=== PATIENT | male | born 1970 ===

== ENCOUNTER → 2019-06-29 12:18 | Outpatient (CLI) | payer OTHER ==
[~2019-06-29 12:18] MED LIST: BYDUREON2 MG SQ; CATAFLAM50 MG PO; GLUMETZA1000 MG PO; INTESTINEX1 CA1 PO; LANTUS100 U/ML SQ; LEVAQUIN750 MG PO; LEVSIN/SL0.125 MG SL; PERCOCET 5/321 UDTAB PO; PROTONIX40 MG PO
== END | disposition home or self-care (01) ==
LOC: LAB 12:18
DX: N39.0 Urinary tract infection, site not specified (principal); N20.0 Calculus of kidney; R10.32 Left lower quadrant pain; K57.20 Diverticulitis of large intestine with perforation and abscess without bleeding

== ENCOUNTER 2019-06-29 12:40 | Outpatient (CLI) | payer OTHER | END 2019-06-29 12:49 | disposition home or self-care (01) | LOC: TOM 12:40 | DX: K57.20 Diverticulitis of large intestine with perforation and abscess without bleeding (principal); R10.32 Left lower quadrant pain ==